=== PATIENT | male | born 1995 | race Caucasian/White ===

== ENCOUNTER 2019-02-24 16:30 | Emergency (ER) | payer OTHER ==
[~2019-02-24] VITALS: Ht 170.2 cm; Wt 70.5 kg
[2019-02-24] MEDS ORDERED: ACET-841 PO (16:44)
[2019-02-24] MEDS ORDERED: ACETAMINOPHEN TAB 650MG DOSE (2X325MG) PO ONE (16:45)
[2019-02-24] MEDS ORDERED: NS 1,000 ML IV ONE (16:45)
[2019-02-24] MEDS ORDERED: METOCLOPRAMIDE INJ 10MG/2ML VIAL (J2765) IV ONE (16:45)
[2019-02-24 17:20] LABS: BASO # 0.1 10^3/uL (0.0-0.2); BASO % 1.1 % (0.0-1.0); EOS % 0.2 % (0.0-3.0); HEMATOCRIT 46.7 % (42.0-52.0); HEMOGLOBIN 15.8 g/dl (13.5-17.5); LYMPH # 0.4 10^3/uL (1.5-5.0); LYMPH % 8.5 % (24.0-44.0); MEAN CORPUSCULAR HEMOGLOBIN 29.2 pg (27.0-33.0); MEAN CORPUSCULAR HGB CONC 33.8 g/dl (32.0-36.5); MEAN CORPUSCULAR VOLUME 86.2 fl (80.0-96.0); MONO # 0.7 10^3/uL (0.0-0.8); MONO % 14.8 % (0.0-5.0); NEUTROPHILS # 3.4 10^3/uL (1.5-8.5); PLATELET COUNT, AUTOMATED 190 10^3/uL (150-450); RED BLOOD COUNT 5.42 10^6/uL (4.30-6.10); WHITE BLOOD COUNT 4.5 10^3/uL (4.0-10.0)
[2019-02-24 17:42] LABS: INFLUENZA A AMPLIFICATION NEGATIVE (NEGATIVE); INFLUENZA B AMPLIFICATION POSITIVE (NEGATIVE)
[2019-02-24 17:45] LABS: ACETAMINOPHEN LEVEL 4.1 UG/ML (10.0-30.0); ALBUMIN 4.4 GM/DL (3.2-5.2); ALT/SGPT 38 U/L (12-78); BILIRUBIN,DIRECT 0.2 MG/DL (0.0-0.2); BILIRUBIN,TOTAL 0.7 MG/DL (0.2-1.0); BLOOD UREA NITROGEN 10 MG/DL (7-18); CALCIUM LEVEL 9.5 MG/DL (8.5-10.1); CARBON DIOXIDE LEVEL 25 MEQ/L (21-32); CHLORIDE LEVEL 104 MEQ/L (98-107); CK-MB VALUE MASS < 1.0 NG/ML (<3.6); CPK CREATINE PHOSPHOKINASE 294 U/L (39-308); CREATININE FOR GFR 1.31 MG/DL (0.70-1.30); ETHYL ALCOHOL (ETHANOL) < 0.003 % (0.000-0.010); GLOMERULAR FILTRATION RATE > 60.0 (>60); GLUCOSE, FASTING 112 MG/DL (70-100); MB/CK RELATIVE INDEX 0.34 (< OR =4); POTASSIUM SERUM 3.5 MEQ/L (3.5-5.1); SALICYLATE LEVEL < 1.7 MG/DL (5.0-30.0); SODIUM LEVEL 139 MEQ/L (136-145); TOTAL PROTEIN 7.6 GM/DL (6.4-8.2); TROPONIN I < 0.02 NG/ML (< 0.10)
[2019-02-24] MEDS ORDERED: OSELTAMIVIR PHOSPHATE 75 MG CAP (TAMIFLU) PO ONE (18:00)
[2019-02-24] MEDS ORDERED: OSEL75CA PO (18:10)
[2019-02-24 18:29] VITALS: BP 116/59
--- NOTE | 2019-02-24 18:29 | ECGEPIP ---
[facility] [place] - ED Test Date: 2019-02-24 Pat Name: MIKEY SCHMITT Department: Room: - Gender: Male Sausage Smoker: : 1995 Requested By: MULUGETA HOLT Order Number: [id number] Reading MD: Jennifer Morgan Measurements Intervals [place] Rate: 80 P: 71 NE: 140 QRS: 58 QRSD: 102 T: 7 QT: 364 QTc: 422 Interpretive Statements SINUS RHYTHM POSSIBLE LEFT ATRIAL ENLARGEMENT ABNORMAL RHYTHM ECG NSTTW abnormalities No prior Electronically Signed on 02-24-2019 18:29:02 EST by Jennifer Morgan
--- NOTE | 2019-02-25 09:04 | REP ---
CT BRAIN WITHOUT CONTRAST: 02/24/2019. CLINICAL HISTORY: Altered mental status. TECHNIQUE: Standard noncontrast soft tissue and bone windows are reviewed for each slice level. FINDINGS: No prior study. Lateral ventricles midline, symmetric, and without dilatation or displacement. Third and fourth ventricles also unremarkable. Basal ganglia symmetric and normal. The white matter tracts are intact. The naranjo-white junction is well maintained. There is no intra- or extra-axial hemorrhage, mass, mass effect, or edema. Basal cisterns are intact. The cortical stripe is preserved. No extra-axial fluid collection. Posterior fossa shows brainstem and cerebellum intact. Basal cisterns intact. Mastoids and visualized sinuses are clear. The skull base and calvarium are without fracture or focal lesion. There is a 5.5 mm hyperdense nodule in the scalp, the left frontal region superiorly. This could be a sebaceous cyst with inspissated secretions or other similar skin appendage, doubt foreign body, does not have calcification on the bone window settings. Calvarium and skull base are without a focal lesion. IMPRESSION: 1. No intracranial hemorrhage, edema, mass, infarct, or other acute intracranial process. 2. Skull base and calvarium without fracture or focal lesion. Sinuses and visualized mastoids clear. Electronically Signed by Terry Marcial MD 02/25/2019 09:12 A
--- NOTE | 2019-02-25 09:05 | REP ---
CHEST PA AND LATERAL: 02/24/2019. CLINICAL HISTORY: Altered mental status. FINDINGS: Two views of the chest were provided. No prior study. The lungs are well inflated and clear. Heart, mediastinal and hilar contours are normal. Aorta, airway grossly intact. Bones are unremarkable. No free air under the diaphragm. IMPRESSION: 1. No acute cardiopulmonary change. Electronically Signed by Terry Marcial MD 02/25/2019 09:13 A
== END 2019-02-24 18:37 | disposition home or self-care (01) ==
LOC: M ED 16:30
DX: J10.1 Influenza due to other identified influenza virus with other respiratory manifestations (principal); R51 Headache; R94.31 Abnormal electrocardiogram [ECG] [EKG]
CPT/HCPCS: 70450; 71046; 80048; 80076; 82550; 82553; 84443; 84484; 85025; 87040; 87502; 93005; 94760; 96361; 96374; 99284; G0480; J2765